=== PATIENT | female | born 1965 | race Caucasian/White ===

== ENCOUNTER 2024-02-07 09:34 | Emergency (ER) | payer BC ==
[2024-02-07 09:53] VITALS: TEMP 97.8
[2024-02-07] MEDS ORDERED: TORAdol 30 mg Injection ONE (10:44)
[2024-02-07] MEDS ORDERED: Norflex 60 MG/2 ML ONE (10:44)
[2024-02-07] MEDS: Norflex 60 MG/2 ML IM ONE (10:45)
[2024-02-07] MEDS: TORAdol 30 mg Injection IM ONE (10:45)
[2024-02-07 11:07] VITALS: O2SAT 97
--- NOTE | 2024-02-07 11:30 | XRAY ---
Indication: Chronic low back pain. No known injury. Multiple contiguous axial images obtained through the lumbar spine. Sagittal and coronal reformatted images obtained. Comparison: None Axial images negative for acute fracture, suspicious bony lesions, or spinal canal stenosis. L5-S1 level demonstrates mild broad-based disc bulge with tiny vacuum disc phenomena. Facets are symmetric. Sagittal and coronal reformatted images demonstrates normal alignment. L5-S1 disc space narrowing. No acute compression fracture or subluxation. Visualized noncontrasted soft tissues demonstrates marked diffuse colonic fecal stasis best seen on toposcan. Impression: 1. L5-S1 broad-based disc bulge better evaluated with outpatient MRI lumbar spine. 2. Marked diffuse fecal stasis.
--- NOTE | 2024-02-07 12:04 | ERPHSYRPT ---
- History of Present Illness Time Seen by Provider: 02/07/24 10:19 Source: patient Exam Limitations: no limitations Patient Subjective Stated Complaint: lower left sided back pain Triage Nursing Assessment: Pt brought to the ER by her mother, hyeprtensive, rates pain as 10/10, pulses normal, has been having back pain since August but got worse this past week, pain travels down her left leg, PT thinks that it is a herniated disc, has been told she has sciatica, PT ended a couple of weeks ago but pt continues to do the exercises, no difficulty breathing, doesn't appear to be in any distress Physician History: 58-year-old female with history of chronic back pain with radiation to left lower extremity presented in the ER with complaint of increasing low back pain with radiation to left lower extremity which he rates 10/10 intensity without any fall or trauma. Denies any strenuous activity recently. Denies any numbness or weakness of lower extremities. Denies any loss of bowel or bladder control or perineal numbness. Patient reports she has been told that she has herniated disc in the past. Allergies/Adverse Reactions: acetaminophen [From Vicodin] Allergy (Verified 02/07/24 09:53) hydrocodone [From Vicodin] Allergy (Verified 02/07/24 09:53) Home Medications: Pantoprazole Sodium [Protonix] 40 mg PO DAILY 02/07/24 [History] Rosuvastatin Calcium 10 mg PO DAILY 02/07/24 [History] Hx Influenza Vaccination/Date Given: Yes Hx Pneumococcal Vaccination/Date Given: No Travel Risk - International Travel Have you traveled outside of the country in past 3 weeks: No - Emerging Infectious Disease Are you exhibiting symptoms associated with any current EIDs: No - Review of Systems Constitutional: No Symptoms Ears, Nose, & Throat: No Symptoms Respiratory: No Symptoms Cardiac: No Symptoms Abdominal/Gastrointestinal: No Symptoms Genitourinary Symptoms: No Symptoms Musculoskeletal: Back Pain Skin: No Symptoms Neurological: No Symptoms Endocrine: No Symptoms Hematologic/Lymphatic: No Symptoms - Past Medical History Pertinent Past Medical History: Yes Cardiac History: High Cholesterol GI Medical History: GERD - Past Surgical History Past Surgical History: Yes Musculoskeletal: Orthopedic Surgery Female Surgical History: Hysterectomy, Dilation & Curettage Other Surgical History: upper lip repair - Social History Smoking Status: Never smoker Exposure to second hand smoke: No Drug Use: none - Nursing Vital Signs Nursing Vital Signs: Initial Vital Signs Temperature 97.8 F 02/07/24 09:42 Pulse Rate 68 02/07/24 09:42 Blood Pressure 141/83 02/07/24 09:42 O2 Sat by Pulse Oximetry 99 02/07/24 09:42 Pain Scale Pain Intensity [Left Distal 10 Back] Pain Intensity 10 - Physical Exam General Appearance: no apparent distress, alert Eye Exam: PERRL/EOMI Ears, Nose, Throat Exam: normal ENT inspection Neck Exam: normal inspection, full range of motion Respiratory Exam: normal breath sounds, lungs clear Cardiovascular Exam: regular rate/rhythm, normal heart sounds Gastrointestinal Exam: soft, normal bowel sounds, No tenderness Back Exam: normal inspection, vertebral tenderness (Lower lumbar), decreased range of motion, other (Straight leg raising test positive at 30 degrees on the right. Bilateral symmetric 2+ reflexes and plantars downgoing.) Extremity Exam: normal inspection, normal range of motion Neurologic Exam: alert, oriented x 3, cooperative Skin Exam: normal color SpO2 Interpretation: normal SpO2: 97 O2 Delivery: Room Air Ordered Tests: Medication Summary Discontinued Medications Generic Name Dose Route Start Last Admin Trade Name Kelq PRN Reason Stop Dose Admin Ketorolac Tromethamine 30 mg 02/07/24 10:20 02/07/24 10:45 Ketorolac Tromethamine 30 Mg/Ml Inj IM 02/07/24 10:21 30 mg STAT ONE Administration Ketorolac Tromethamine Confirm 02/07/24 10:44 Ketorolac Tromethamine 30 Mg/Ml Inj Administered 02/07/24 10:45 Dose 30 mg .ROUTE .STK-MED ONE Orphenadrine Citrate 60 mg 02/07/24 10:27 02/07/24 10:45 Orphenadrine Citrate 60 Mg/2 Ml Vial IM 02/07/24 10:28 60 mg STAT ONE Administration Orphenadrine Citrate Confirm 02/07/24 10:44 Orphenadrine Citrate 60 Mg/2 Ml Vial Administered 02/07/24 10:45 Dose 60 mg .ROUTE .STK-MED ONE - Progress Progress: pain not gone completely, re-examined Progress Note: 02/07/24 12:00 58-year-old is evaluated in room for worsening low back pain lately with history of disc herniation. Patient is given symptomatic treatment, obtained CT lumbar spine which showed L5-S1 broad-based disc bulge no cauda equina symptoms. Patient need outpatient MRI. She is recommended to continue with muscle relaxant which she is on and NSAIDs to go home and outpatient follow-up. Discussed signs symptoms of worsening needing return to ER which she seems understanding. Counseled pt/family regarding: diagnosis, need for follow-up, rad results Medical Desision Making - Diagnostic Testing Diagnostic test were ordered, analyzed, and reviewed by me: Yes Radiological Interpretation: Interpreted by me, Reviewed by me - Risk of complications The pt has a mod risk of morbidity or mortality based on: Need for prescription drug management - Departure Departure Disposition: Home Clinical Impression: Low back pain Qualifiers: Chronicity: chronic Back pain laterality: left Sciatica presence: with sciatica Sciatica laterality: sciatica of left side Qualified Code(s): M54.42 - Lumbago with sciatica, left side Condition: Stable Critical Care Time: No Referrals: KOREY YOUNGER MD [Primary Care Provider] - Follow up with PCP 1 day Instructions: Low Back Pain (DC), Sciatica (DC) Additional Instructions: Follow-up with primary care and keep appointment with spinal surgery for reevaluation as scheduled. Return to ER for intractable pain, numbness tingling weakness of lower extremities, loss of bowel or bladder control/perineal numbness. continue with flexeril as recommeded. Prescriptions: Ibuprofen 600 mg PO Q6HPRN PRN 10 Days #20 tablet PRN Reason: Pain Cyclobenzaprine HCl 10 mg [Flexeril 10 MG] 10 mg PO TID 10 Days #30 tablet
[2024-02-07 12:11] VITALS: BP 121/75; PULSE 62
== END 2024-02-07 12:12 | disposition home or self-care (01) ==
LOC: ED 09:34
DX: M54.42 Lumbago with sciatica, left side (principal)
CPT/HCPCS: 72131; 96372; 99284; J1885; J2360